=== PATIENT | male | born 1975 | race Caucasian/White ===

== ENCOUNTER → 2019-03-22 | Outpatient (CLI) | payer BC ==
--- NOTE | 2019-03-23 14:18 | KCIC ---
Left knee 3 views. HISTORY: Left knee pain, M 25.562 3 views were taken left knee. There is no fracture. There is a small joint effusion. There is no other acute osseous abnormality. IMPRESSION: 1. Small joint effusion left knee. 2. No fracture or other acute osseous abnormality. Electronically signed by: Alton Diaz MD (03/23/2019 2:14 PM) [facility]
== END | disposition home or self-care (01) ==
LOC: KCIC 09:52
PROVIDERS: ATTEND Family Medicine
DX: M25.462 Effusion, left knee (principal)
CPT/HCPCS: 73562